=== PATIENT | female | born 1970 | race African-American/Black ===

== ENCOUNTER 2024-06-03 15:30 | Emergency (ER) | payer MEDICAID ==
[2024-06-03 15:41] VITALS: RESP 18
--- NOTE | 2024-06-03 16:07 | ED ---
General Adult HPI - General Chief complaint: Extremity Injury, Lower Stated complaint: R Knee Swollen Time Seen by Provider: 06/03/24 15:37 Source: patient, RN notes reviewed Mode of arrival: ambulatory Limitations: no limitations - History of Present Illness Initial comments: 54-year-old female presents to the emergency department for evaluation of right knee pain. Patient reports that this has been going on for a few weeks. She reports that she thinks she bumped her knee a few weeks ago but does not remember what exactly happened. She states that since then she has had some discomfort mostly in her medial knee. She reports that it is worse when she is lying in bed at night. She states that it does feel better when she is up walking around. She also reports relief with ibuprofen. She denies any fever, chills. Denies any overlying skin changes. - Related Data Allergies Allergy/AdvReac Type Severity Reaction Status Date / Time No Known Allergies Allergy Verified 06/03/24 15:41 Review of Systems ROS Statement: Those systems with pertinent positive or pertinent negative responses have been documented in the HPI. ROS Other: All systems not noted in ROS Statement are negative. Past Medical History Past Medical History: Hypertension, Thyroid Disorder History of Any Multi-Drug Resistant Organisms: None Reported Past Surgical History: Hysterectomy, Tonsillectomy Additional Past Surgical History / Comment(s): partial hysterectomy Past Psychological History: No Psychological Hx Reported Smoking Status: Never smoker Past Alcohol Use History: Rare Past Drug Use History: None Reported General Exam Limitations: no limitations General appearance: alert, in no apparent distress Head exam: Present: atraumatic, normocephalic, normal inspection Extremities exam: Present: normal inspection, full ROM, normal capillary refill. Absent: tenderness, pedal edema, joint swelling, calf tenderness Neurological exam: Present: alert, oriented X3 Psychiatric exam: Present: normal affect, normal mood Skin exam: Present: warm, dry, intact, normal color. Absent: rash Course Vital Signs 06/03/24 06/03/24 15:39 17:19 Temperature 97.6 F 98.1 F Pulse Rate 80 78 Respiratory 18 18 Rate Blood Pressure 148/88 138/87 O2 Sat by Pulse 100 97 Oximetry Medical Decision Making - Medical Decision Making Was pt. sent in by a medical professional or institution (, PA, BRAND EXECUTIVE, urgent care, hospital, or assisted...) When possible be specific @ -No Did you speak to anyone other than the patient for history (EMS, parent, family, police, friend...)? What history was obtained from this source @ -No Did you review nursing and triage notes (agree or disagree)? Why? @ -I reviewed and agree with nursing and triage notes Were old charts reviewed (outside hosp., previous admission, EMS record, old EKG, old radiological studies, urgent care reports/EKG's, assisted records)? Report findings @ -No old charts were reviewed Differential Diagnosis (chest pain, altered mental status, abdominal pain women, abdominal pain men, vaginal bleeding, weakness, fever, dyspnea, syncope, headache, dizziness, GI bleed, back pain, seizure, CVA, palpatations, mental health, musculoskeletal)? @ -Differential Musculoskeletal Muscular strain, contusion, ligament sprain, fracture, arthritis, septic arthritis, bursitis, cellulitis, muscle spasm, nerve compression, DVT, arterial occlusion, herpes zoster, electrolyte abnormality, tumor.... This is not meant to be in all inclusive list EKG interpreted by me (3pts min.). @ -None X-rays interpreted by me (1pt min.). @ -X-ray of the right knee shows mild osteoarthritic changes, small joint effusion, no acute fracture or dislocation CT interpreted by me (1pt min.). @ -None done U/S interpreted by me (1pt. min.). @ -None done What testing was considered but not performed or refused? (CT, X-rays, U/S, labs)? Why? @ -None What meds were considered but not given or refused? Why? @ -None Did you discuss the management of the patient with other professionals (professionals i.e. , PA, BRAND EXECUTIVE, lab, RT, psych nurse, social media community manager, coin machine assembler, teacher, adult probation officer, catalytic case operator)? Give summary @ -No Was smoking cessation discussed for >3mins.? @ -No Was critical care preformed (if so, how long)? @ -No Were there social determinants of health that impacted care today? How? (Homelessness, low income, unemployed, alcoholism, drug addiction, transportation, low edu. Level, literacy, decrease access to med. care, [facility], rehab)? @ -No Was there de-escalation of care discussed even if they declined (Discuss DNR or withdrawal of care, Hospice)? DNR status @ -No What co-morbidities impacted this encounter? (DM, HTN, Smoking, COPD, CAD, Cancer, CVA, ARF, Chemo, Hep., AIDS, mental health diagnosis, sleep apnea, morbid obesity)? @ -None Was patient admitted / discharged? Hospital course, mention meds given and route, prescriptions, significant lab abnormalities, going to OR and other pertinent info. @ -Discharge. Patient presented to emergency department for evaluation of right knee pain. There is no evidence of infectious process. X-rays obtained revealing no evidence of acute fracture dislocation. Discussed these findings with patient. Advised symptomatic treatment at this time. She is understanding agreeable plan. Patient stable at time of discharge. Case discussed with Dr. Mcdaniel Undiagnosed new problem with uncertain prognosis? @ -No Drug Therapy requiring intensive monitoring for toxicity (Heparin, Nitro, Insulin, Cardizem)? @ -No Were any procedures done? @ -No Diagnosis/symptom? @ -Bursitis Acute, or Chronic, or Acute on Chronic? @ -Acute Uncomplicated (without systemic symptoms) or Complicated (systemic symptoms)? @ -Uncomplicated Side effects of treatment? @ -No Exacerbation, Progression, or Severe Exacerbation? @ -No Poses a threat to life or bodily function? How? (Chest pain, [place], [place], pneumonia, PE, COPD, DKA, ARF, appy, cholecystitis, CVA, Diverticulitis, Homicidal, Suicidal, threat to staff... and all critical care pts) @ -No Disposition Clinical Impression: Knee pain, Bursitis Disposition: HOME SELF-CARE Condition: Stable Instructions (If sedation given, give patient instructions): Knee Bursitis (ED), Knee Pain (ED) Additional Instructions: Utilize symptomatic treatment including anti-inflammatory medications like ibuprofen, you may utilize a knee brace or De wrap of the knee to apply compression, ice the knee and continue elevating at night. Please follow up with your primary care provider. Return to the emergency department for new or worsening symptoms. Is patient prescribed a controlled substance at d/c from ED?: No Referrals: Louann Washington DO [Primary Care Provider] - 1-2 days Ward Gallegos MD [STAFF PHYSICIAN] - 1-2 days
--- NOTE | 2024-06-03 16:25 | XR ---
EXAMINATION TYPE: XR knee complete RT DATE OF EXAM: 06/03/2024 4:17 PM COMPARISON: None. CLINICAL INDICATION: Female, 54 years old with history of pain, pain TECHNIQUE: 3 view(s) obtained. FINDINGS: There is narrowing of the medial compartment joint space. No acute fractures or dislocations evident. Medial femoral condylar spurring is present. A large joint effusion is evident. Small joint effusion is not excluded. Follow up exams can be performed 7-10 days from acute trauma for continued pain. IMPRESSION: 1. No acute osseous abnormality right knee. 2. Mild medial compartment degenerative joint changes. 3. Small joint effusion is not excluded [facility], , 06/03/2024 4:22 PM
[2024-06-03 17:20] VITALS: BP 138/87; PULSE 78; TEMP 98.1
== END 2024-06-03 17:19 | disposition home or self-care (01) ==
LOC: EC 15:30
DX: S83.91XA Sprain of unspecified site of right knee, initial encounter (principal); M71.9 Bursopathy, unspecified; Z88.6 Allergy status to analgesic agent; W22.09XA Striking against other stationary object, initial encounter
CPT/HCPCS: 99283

== ENCOUNTER → 2024-09-03 | Outpatient (CLI) | payer MEDICAID ==
--- NOTE | 2024-09-06 19:58 | MR ---
EXAMINATION TYPE: MR knee RT wo con DATE OF EXAM: 09/03/2024 5:05 PM COMPARISON: Plain film 06/06/2024.. CLINICAL INDICATION: Female, 54 years old with history of M25.561; PHH, RT knee pain and swelling x6 months TECHNIQUE: Multi planar, multi sequence imaging was performed of the knee including: Triplane proton density fat-saturated images and T1-weighted imaging. No Gadolinium was given. IV Contrast: mL (none if empty) FINDINGS: Medial meniscus: Posterior horn undersurface tear series 501 image 26 with radial morphology and axial imaging series 701 image 19. The meniscal body is displaced medially. Medial femorotibial cartilage: Grade-II chondromalacia. Medial collateral ligament: Intact Lateral meniscus: High PD signal within the anterior horn and body compatible with mucoid degener ation. A PD signal structures extending to the superior surface on series 501 image 20. The meniscal body is slightly displaced laterally. Lateral femorotibial cartilage: Grade-II chondromalacia. Lateral collateral ligament complex: Intact Patellofemoral alignment: Normal Patellofemoral cartilage: Grade-II chondromalacia. Extensor mechanism: Intact. Joint/bursal fluid: There is a small joint effusion present. Muscles/tendons: The patellar tendon, quadriceps tendon, IT band, pes anserinus tendons, semimembrano timoteo tendon, popliteus tendon, and biceps femoris tendon are all within normal limits. Bone marrow: High T2 complex heterogenous lesion in the distal femur measuring 22 x 16 x 15 mm wi th nonaggressive features. High T2 signal is seen near the PCL insertion onto the tibia. Anterior cruciate ligament: Intact. Posterior cruciate ligament: Intact. Soft tissues: Mild soft tissue edema anterior to the patella.e IMPRESSION: 1. Medial meniscus posterior horn undersurface tear and extrusion/displacement of the meniscal body medially. 2. Lateral meniscus body horizontal tear and mucoid degeneration. 3. ACL/PCL LCL and MCL are intact. 4. Distal femur metaphysis lesion most compatible with enchondroma. This has nonaggressive features correlate with prior imaging not significantly changed given differences in technique and prior plain film. [facility], , 09/06/2024 7:56 PM
== END | disposition home or self-care (01) ==
LOC: RADMRIMAIN 16:30
PROVIDERS: ATTEND Orthopaedic Surgery
DX: S83.241A Other tear of medial meniscus, current injury, right knee, initial encounter (principal); S83.281A Other tear of lateral meniscus, current injury, right knee, initial encounter; M89.8X5 Other specified disorders of bone, thigh